=== PATIENT | female | born 1945 | race Caucasian/White ===

== ENCOUNTER 2018-05-11 04:31 | Emergency (ER) | payer MEDICARE, OTHER ==
[2018-05-11 05:14] VITALS: BP 155/90
--- NOTE | 2018-05-11 05:52 | EDM.PDOC ---
ED HPI GENERAL MEDICAL PROBLEM - General Chief Complaint: Genitourinary Problem Stated Complaint: BLADDER INFECTION Time Seen by Provider: 05/11/18 05:48 Source of Information: Reports: Patient History Limitations: Reports: No Limitations - History of Present Illness INITIAL COMMENTS - FREE TEXT/NARRATIVE: pt has just finished a course of macrobid and she is now having frequency and marked burning when she voids. This got severe tonight. She has pyridium at home and she took that. Onset: Gradual, Other ( last 2-3 days. ) Duration: Hour(s): Location: Reports: Abdomen Bladder Pain Score (Numeric/FACES): 4 - Related Data Allergies Allergy/AdvReac Type Severity Reaction Status Date / Time Sulfa (Sulfonamide Allergy Rash Verified 05/20/16 18:35 Antibiotics) Home Meds: Home Meds Ca Cmb No.1/Vit D3/B-6/FA/B12 [Vitamin D3 1,000 Unit] 2,000 mg PO BID 07/22/14 [ History] Calcium Carbonate/Vitamin D3 [Calcium 600 + Vit D 400] 1 tab PO BID 07/22/14 [ History] Cranberry 2 tab PO BID 07/22/14 [History] Esomeprazole [NexIUM] 40 mg PO QAM 07/22/14 [History] Fish Oil/[place]-3 Fatty Acids [Fish Oil 1,000 MG] 2,400 mg PO DAILY 07/22/14 [ History] Lactobacillus Acidophilus [Probiotic] 1 cap PO BID 07/22/14 [History] Magnesium 1 tab PO BID 07/22/14 [History] Rosuvastatin [Crestor] 5 mg PO BEDTIME 07/22/14 [History] metFORMIN [Glucophage XR] 1,000 mg PO BIDMEALS 05/07/16 [History] Aspirin 81 mg PO DAILY 05/20/16 [History] HCTZ/Triamterene [Dyazide 25-37.5 MG] 1 tab PO DAILY 05/20/16 [History] cephALEXin [Keflex] 250 mg PO DAILY 05/20/16 [History] Omeprazole Magnesium [Prilosec Otc] 40 mg PO DAILY 05/11/18 [History] Ranitidine HCl [Zantac] 150 mg PO BEDTIME 05/11/18 [History] Past Medical History HEENT History: Reports: Cataract Cardiovascular History: Reports: High Cholesterol Respiratory History: Reports: Asthma, Other (See Below) Other Respiratory History: history of nodule right lung Gastrointestinal History: Reports: Irritable Bowel Syndrome Genitourinary History: Reports: UTI, Recurrent HAND WASHER History: Reports: Other (See Below) Other HAND WASHER History: rectocele Musculoskeletal History: Reports: Osteoarthritis Endocrine/Metabolic History: Reports: Diabetes, Type II Oncologic (Cancer) History: Reports: Other (See Below) Other Oncologic History: skin cancer - Infectious Disease History Infectious Disease History: Reports: Chicken Pox, Measles, Mumps, Rubella - Past Surgical History HEENT Surgical History: Reports: None Social & Family History - Family History Family Medical History: Noncontributory - Tobacco Use Smoking Status *Q: Never Smoker Second Hand Smoke Exposure: No - Caffeine Use Caffeine Use: Reports: None - Recreational Drug Use Recreational Drug Use: No ED ROS GENERAL - Review of Systems Review Of Systems: See Below Constitutional: Reports: No Symptoms HEENT: Reports: No Symptoms Respiratory: Reports: No Symptoms Cardiovascular: Reports: No Symptoms Endocrine: Reports: No Symptoms GI/Abdominal: Reports: Abdominal Pain : Reports: Frequency, Pain, Urgency Musculoskeletal: Reports: No Symptoms Skin: Reports: No Symptoms ED EXAM, RENAL/ - Physical Exam Exam: See Below Text/Narrative:: pt had a 7 day course of macrobid which she finished about 1 week ago. She now has severe burning when she voids and has urgency. Exam Limited By: No Limitations General Appearance: Alert, Anxious, Mild Distress Ears: Normal TMs Nose: Normal Inspection Throat/Mouth: Normal Inspection Head: Atraumatic Neck: Normal Inspection (Female) Exam: Other (pt does not have back tenderness. ) Back Exam: Normal Inspection Course - Vital Signs Last Recorded V/S: Last Vital Signs Temp 34.9 C L 05/11/18 05:13 Pulse 72 05/11/18 05:13 Resp 16 05/11/18 05:13 BP 155/90 H 05/11/18 05:13 Pulse Ox 97 05/11/18 05:13 - Orders/Labs/Meds Orders: Active Orders 24 hr Category Date Time Status CULTURE URINE [RM] Stat Lab 05/11/18 05:47 Received UA W/MICROSCOPIC [URIN] Urgent Lab 05/11/18 05:40 Ordered Labs: Laboratory Tests 05/11/18 Range/Units 05:40 Urine Color Yellow Urine Appearance Clear Urine pH 8.0 (4.5-8.0) Ur Specific [place] 1.010 (1.008-1.030) Urine Protein Negative (NEGATIVE) mg/dL Urine Glucose (UA) Normal (NEGATIVE) mg/dL Urine Ketones Negative (NEGATIVE) mg/dL Urine Occult Blood Moderate (NEGATIVE) Urine Nitrite Negative (NEGATIVE) Urine Bilirubin Negative (NEGATIVE) Urine Urobilinogen Normal (NORMAL) mg/dL Ur Leukocyte Esterase Large (NEGATIVE) Urine RBC 0-5 (0-5) Urine WBC 5-10 H (0-5) Ur Epithelial Cells Few Amorphous Sediment Not seen Urine Bacteria Few Urine Mucus Not seen - Re-Assessments/Exams Free Text/Narrative Re-Assessment/Exam: 05/11/18 05:57 urine will be cultured Departure - Departure Time of Disposition: 05:50 Disposition: Home, Self-Care 01 Condition: Fair Clinical Impression: UTI (urinary tract infection) - Discharge Information Referrals: PCP,None [Primary Care Provider] - Forms: ED Department Discharge Care Plan Goals: pt will be notified of the culture result, cipro 500mg bid for 10 days, use the pyridium she has at home as needed. - My Orders Last 24 Hours: My Active Orders 05/11/18 05:40 UA W/MICROSCOPIC [URIN] Urgent 05/11/18 05:47 CULTURE URINE [RM] Stat - Assessment/Plan Last 24 Hours: My Active Orders 05/11/18 05:40 UA W/MICROSCOPIC [URIN] Urgent 05/11/18 05:47 CULTURE URINE [RM] Stat
== END 2018-05-11 06:02 | disposition home or self-care (01) ==
LOC: JP.ED 04:31
DX: N39.0 Urinary tract infection, site not specified (principal); E11.9 Type 2 diabetes mellitus without complications; Z88.2 Allergy status to sulfonamides; Z79.899 Other long term (current) drug therapy
CPT/HCPCS: 81001; 87086; 99284

== ENCOUNTER 2020-04-08 19:41 | Emergency (ER) | payer MEDICARE, OTHER ==
[2020-04-08 20:11] VITALS: BP 138/78; PULSE 80
--- NOTE | 2020-04-08 20:44 | EDM.PDOC ---
ED HPI GENERAL MEDICAL PROBLEM - General Chief Complaint: Lower Extremity Injury/Pain Stated Complaint: R FOOT PAIN Time Seen by Provider: 04/08/20 19:55 Source of Information: Reports: Patient History Limitations: Reports: No Limitations - History of Present Illness INITIAL COMMENTS - FREE TEXT/NARRATIVE: 75-year-old female with a chronic right foot pain for the past several weeks to months had a sudden increase in pain when she stepped wrong earlier today. Pain seems to be localized along the lateral aspect of the foot near the base of the fifth metatarsal. Slight swelling but no bruising. Onset: Sudden (Sudden increase within the last 24 hours of her chronic foot pain) Location: Reports: Lower Extremity, Right Right Foot Pain Score (Numeric/FACES): 10 - Related Data Allergies Allergy/AdvReac Type Severity Reaction Status Date / Time Sulfa (Sulfonamide Allergy Rash Verified 04/08/20 20:12 Antibiotics) Home Meds: Home Meds Ca Cmb No.1/Vit D3/B-6/FA/B12 [Vitamin D3 1,000 Unit] 2,000 mg PO BID 07/22/14 [History] Calcium Carbonate/Vitamin D3 [Calcium 600 + Vit D 400] 1 tab PO BID 07/22/14 [History] Cranberry 2 tab PO BID 07/22/14 [History] Fish Oil/[place]-3 Fatty Acids [Fish Oil 1,000 MG] 2,400 mg PO DAILY 07/22/14 [History] Lactobacillus Acidophilus [Probiotic] 1 cap PO BID 07/22/14 [History] Magnesium 1 tab PO BID 07/22/14 [History] Rosuvastatin [Crestor] 5 mg PO BEDTIME 07/22/14 [History] metFORMIN [Glucophage XR] 1,000 mg PO BIDMEALS 05/07/16 [History] Aspirin 81 mg PO DAILY 05/20/16 [History] HCTZ/Triamterene [Dyazide 25-37.5 MG] 1 tab PO ASDIRECTED 05/20/16 [History] cephALEXin [Keflex] 250 mg PO ASDIRECTED 05/20/16 [History] Omeprazole Magnesium [Prilosec Otc] 40 mg PO DAILY 05/11/18 [History] DULoxetine [Cymbalta] 20 mg PO DAILY 04/08/20 [History] Famotidine [Pepcid] 40 mg PO DAILY 04/08/20 [History] HCTZ/Triamterene [Dyazide 25-37.5 MG] 2 tab PO ASDIRECTED 04/08/20 [History] Omeprazole Magnesium [Prilosec Otc] 40 mg PO DAILY 04/08/20 [History] Past Medical History HEENT History: Reports: Cataract Cardiovascular History: Reports: High Cholesterol Respiratory History: Reports: Asthma, Other (See Below) Other Respiratory History: history of nodule right lung Gastrointestinal History: Reports: Irritable Bowel Syndrome Genitourinary History: Reports: UTI, Recurrent DEALMAKER History: Reports: Other (See Below) Other DEALMAKER History: rectocele Musculoskeletal History: Reports: Arthritis, Osteoarthritis Endocrine/Metabolic History: Reports: Diabetes, Type II Oncologic (Cancer) History: Reports: Other (See Below) Other Oncologic History: skin cancer - Infectious Disease History Infectious Disease History: Reports: Chicken Pox, Measles, Mumps, Rubella - Past Surgical History Head Surgeries/Procedures: Reports: None HEENT Surgical History: Reports: None Cardiovascular Surgical History: Reports: None Respiratory Surgical History: Reports: None GI Surgical History: Reports: None Female Surgical History: Reports: None Endocrine Surgical History: Reports: None Musculoskeletal Surgical History: Reports: None Oncologic Surgical History: Reports: Other (See Below) Other Oncologic Surgeries/Procedures: REMOVED SKIN CANCER Social & Family History - Family History Family Medical History: Noncontributory - Tobacco Use Smoking Status *Q: Never Smoker Second Hand Smoke Exposure: No - Caffeine Use Caffeine Use: Reports: Coffee, Tea - Recreational Drug Use Recreational Drug Use: No Review of Systems - Review of Systems Review Of Systems: See Below Constitutional: Denies: Fever Respiratory: Denies: Shortness of Breath Cardiovascular: Denies: Chest Pain Musculoskeletal: Reports: Other (Has fairly generalized arthritic problems) Skin: Denies: Bruising Neurological: Reports: No Symptoms ED EXAM, GENERAL - Physical Exam Exam: See Below Exam Limited By: No Limitations General Appearance: Alert, No Apparent Distress Head: Atraumatic Respiratory/Chest: No Respiratory Distress Extremities: Other (Exam is otherwise limited to the right foot. There is no deformity or bruising but on palpation she is very tender over the proximal metatarsal and has increased pain with plantar flexion against resistance.) Neurological: Alert, Oriented Course - Vital Signs Last Recorded V/S: Last Vital Signs Temp Pulse 80 04/08/20 20:10 Resp 16 04/08/20 20:10 BP 138/78 04/08/20 20:10 Pulse Ox 97 04/08/20 20:10 - Orders/Labs/Meds Orders: Active Orders 24 hr Category Date Time Status Foot Comp Min 3V Rt [CR] Stat Exams 04/08/20 20:30 Taken DME for Discharge [COMM] Stat Oth 04/08/20 21:02 Ordered DME for Discharge [COMM] Stat Oth 04/08/20 21:02 Ordered - Re-Assessments/Exams Free Text/Narrative Re-Assessment/Exam: 04/08/20 21:01 A foot x-ray was obtained that confirmed a transverse fracture of the very proximal fifth metatarsal, nondisplaced. She was placed in a cam walker and was given a walker to assist her with ambulation because she did not feel she could use crutches. She will elevate the foot when able and recheck with podiatry or orthopedics next week to monitor care. Departure - Departure Time of Disposition: 21:37 Disposition: Home, Self-Care 01 Clinical Impression: Fracture of fifth metatarsal bone of right foot Qualifiers: Encounter type: initial encounter Fracture type: closed Fracture alignment: nondisplaced Qualified Code(s): S92.354A - Nondisplaced fracture of fifth metat arsal bone, right foot, initial encounter for closed fracture - Discharge Information Instructions: Metatarsal Fracture Referrals: [facility] [employer] [Primary Care Provider] - Forms: ED Department Discharge Care Plan Goals: Wear boot continuously for support, use walker to assist with ambulation. Elevate foot when able, and consider a podiatry or orthopedic consultation next week to obtain a treatment plan and monitor progress. Sepsis Event Note (ED) - Evaluation Sepsis Screening Result: No Definite Risk - Focused Exam Vital Signs: Vital Signs Pulse Resp BP Pulse Ox 04/08/20 20:10 80 16 138/78 97 - My Orders Last 24 Hours: My Active Orders 04/08/20 20:30 Foot Comp Min 3V Rt [CR] Stat 04/08/20 21:02 DME for Discharge [COMM] Stat DME for Discharge [COMM] Stat - Assessment/Plan Last 24 Hours: My Active Orders 04/08/20 20:30 Foot Comp Min 3V Rt [CR] Stat 04/08/20 21:02 DME for Discharge [COMM] Stat DME for Discharge [COMM] Stat
--- NOTE | 2020-04-09 09:08 | CR ---
FOOT RIGHT 3 views CLINICAL HISTORY:Injury FINDINGS:There is a transverse nondisplaced fracture through the base of the fifth metatarsal. There is moderate osteoarthritic change at the first MTP joint. There is some tarsal periarticular spurring. Impression: Transverse nondisplaced fracture through the base of the fifth metatarsal Osteoarthritic changes
== END 2020-04-08 21:20 | disposition home or self-care (01) ==
LOC: JP.ED 19:41
DX: S92.354A Nondisplaced fracture of fifth metatarsal bone, right foot, initial encounter for closed fracture (principal); E78.00 Pure hypercholesterolemia, unspecified; J45.909 Unspecified asthma, uncomplicated; M19.90 Unspecified osteoarthritis, unspecified site; E11.9 Type 2 diabetes mellitus without complications; Z79.84 Long term (current) use of oral hypoglycemic drugs; Z79.82 Long term (current) use of aspirin; Z88.2 Allergy status to sulfonamides; Z79.899 Other long term (current) drug therapy; X50.9XXA Other and unspecified overexertion or strenuous movements or postures, initial encounter
CPT/HCPCS: 73630-26-RT; 73630-RT; 99283

== ENCOUNTER 2024-06-05 22:59 | Emergency (ER) | payer MEDICARE, OTHER ==
[2024-06-05 23:15] VITALS: BP 149/65; PULSE 93
[2024-06-05 23:45] LABS: APPEARANCE,URINE SLIGHTLY CLOUDY (CLEAR); BILIRUBIN,URINE SMALL (NEGATIVE); COLOR,URINE YELLOW (YELLOW); GLUCOSE,URINE NEGATIVE (NEGATIVE); KETONES,URINE 15 mg/dL (NEGATIVE); LEUKOCYTE ESTERASE,URINE NEGATIVE (NEGATIVE); NITRITE,URINE NEGATIVE (NEGATIVE); OCCULT BLOOD,URINE NEGATIVE (NEGATIVE); PH,URINE 5.5 (5.0-8.0); PROTEIN,URINE NEGATIVE (NEGATIVE); UROBILINOGEN,URINE 0.2 EU/dL (0.2-1.0)
[2024-06-05 23:49] LABS: AMORPHOUS SEDIMENT,URINE NOT SEEN; BACTERIA,URINE FEW; EPITHELIAL CELLS,URINE MODERATE; MUCUS,URINE FEW; RBC,URINE 0-5 (0-5); WBC,URINE 0-5 (0-5)
== END 2024-06-06 00:22 | disposition home or self-care (01) ==
LOC: JP.ED 22:59
DX: R50.9 Fever, unspecified (principal); E78.00 Pure hypercholesterolemia, unspecified; E11.9 Type 2 diabetes mellitus without complications; Z88.2 Allergy status to sulfonamides; Z79.84 Long term (current) use of oral hypoglycemic drugs; Z79.899 Other long term (current) drug therapy
CPT/HCPCS: 81001; 82947; 87086; 99284